=== PATIENT | female | born 1955 | race Caucasian/White ===

== ENCOUNTER 2023-04-14 17:54 | Emergency (ER) | payer MEDICARE, SELFPAY ==
--- NOTE | ~2023-04-14 | XR_ITS ---
EXAMINATION: XR CHEST CLINICAL INFORMATION: Chest pain, lightheadedness COMPARISON: None available. TECHNIQUE: 2 views of the chest were obtained. FINDINGS: No significant abnormality is noted involving the heart, lungs, mediastinum, bony thorax or soft tissues. XR/XR chest 2V IMPRESSION: Unremarkable examination.
--- NOTE | 2023-04-14 18:40 | ED.GENADULT ---
HPI - General Adult General Chief complaint: Recheck/Abnormal Lab/Rx Stated complaint: Dr sent for HBP Time Seen by Provider: 04/14/23 22:32 Source: patient, family (), RN notes reviewed and old records reviewed Mode of arrival: ambulatory Limitations: no limitations History of Present Illness HPI narrative: 67-year-old female past medical history significant for diabetes presents for evaluation of palpitations and high blood pressure Patient does not carry a diagnosis of high blood pressure and therefore does not take any medication for it She reports that over the weekend, Wednesday she was in the yard gardening and painting a fence She was also doing the laundry. She feels that she may have ?overdone it. ? She reports not feeling well for last 3 days with vague weakness and some heart palpitations She reports some tightness in her chest but denies chest pain Denies any history of coronary artery disease. She states that he she has not had an echo or stress test in about 20 years Currently she denies any pain at all She called her doctor yesterday to make an appointment and was told to take her blood pressure She states that was as high as 175/97 so her primary doctor's office referred her to the ER Related Data Allergies Allergy/AdvReac Type Severity Reaction Status Date / Time Penicillins Allergy Unknown throat Verified 04/14/23 18:47 swelling Review of Systems Constitutional: Constitutional: Denies headache(s) and Reports weakness Eyes: Eyes: Denies blurry vision ENT: Denies headache(s) Cardiovascular: Cardiovascular: Denies chest pain, Reports rapid heart rate, Reports palpitations and Denies dyspnea Respiratory: Respiratory: Denies cough and Denies dyspnea Gastrointestinal: Gastrointestinal: Denies abdominal pain Neurologic: Denies headache(s) and Reports weakness Endocrine: Endocrine: Reports palpitations PMFSH Social History Social History Smoked in Last 30 Days: No Use of substances other than those prescribed or required for medical reasons: Yes Substance Use Type: Marijuana Substance Use Frequency: Daily Advance Directives: No Advance Directives Information Provided: No Physical Exam ED Vital Signs: Vital Signs - 24 hr 04/14/23 18:41 04/14/23 22:37 Temperature 98.7 F Pulse Rate 83 80 Respiratory Rate 20 14 Blood Pressure 175/97 H 151/83 H Pulse Oximetry 96 97 Oxygen Delivery Method Room Air Room Air BMI result Body Mass Index 26.3 Const General: healthy appearing, comfortable, no acute distress, alert and awake Nutritional Appearance: well nourished Orientation/consciousness: patient oriented x3 HENMT Head: Yes normocephalic and Yes atraumatic Eyes Eyelids: Yes eyelids normal Conjunctivae: conjunctivae normal Sclerae: sclerae normal Corneas: corneas normal Pupils: Equal, round and reactive pupils present EOM: EOMs intact bilaterally Neck Neck: Yes full ROM Resp Effort & Inspection: normal respiratory effort, able to speak in complete sentences, no audible wheezes and not labored Auscultation: clear to auscultation bilaterally Cardio Rate: regular rate Rhythm: regular rhythm Skin General skin exam: no rashes or lesions noted and elasticity normal Neuro General: patient oriented x3 Cranial nerves: Yes Equal, round and reactive pupils present and Yes Bilaterally intact EOM present Cognition (Neuro): normal cognition Extrem Other: Moving all extremities well without any obvious deformities Course Course Course Narrative: This is an RME: Additional HPI, ROS, PE not included below will be deferred to primary provider. This is a 31-gyfo-wud-female presenting to the emergency department with complaints of high blood pressure reading since today. Pt states that she was working outside over the weekend in her garden and has felt nauseous, body cramping and headaches. She had an appointment with her PCP yesterday, who advised her to take her BP. She took it twice today and noticed that it was elevated. She admits to having cramping throughout her chest wall into her back and into her legs. BP readings 151/83; 171/101 today. BP 175/97 Plan: Labs, EKG, chest x-ray ordered Medical Decision Making Medical Decision Making MDM Narrative: 67-year-old female with a past medical history significant for diabetes presents for evaluation of palpitations and high blood pressure. Currently she is asymptomatic. Her physical exam is benign. On arrival to the ER her blood pressure was 175/97, but improved to 151/83 without any intervention. Her labs were significant for mild dehydration, her troponin was undetectable. Electrolytes are within normal limits with the exception of a mildly low magnesium. Chest x-ray is clear, EKG was a sinus rhythm without acute ischemia. Patient is ruled out for ACS. I discussed all these findings with the patient. She will follow-up with her doctor, who is going to call her back tomorrow. Will refer the patient to Cardiology as she may benefit from outpatient echocardiogram Differential Diagnosis Hypertension Chest pain ACS CHF Lab Data [facility] Lab Attestation statement: I reviewed the patient's lab results. 04/14/23 19:02 04/14/23 19:02 Labs: Lab Results 04/14/23 04/14/23 04/14/23 Range/Units 19:02 19:02 19:02 WBC 8.0 (4.8-10.8) X10*3/uL RBC 5.42 (4.20-5.50) X10*6/uL Hgb 15.7 (12.0-16.0) g/dl Hct 48.4 H (37.0-47.0) % MCV 89.3 (80.0-98.0) fL MCH 29.0 (27.0-33.0) pg MCHC 32.4 (31.0-35.0) g/dl RDW 11.9 (11.0-16.0) % Plt Count 381 (160-400) X10*3/uL MPV 8.9 L (9.4-12.3) fL Immature Gran % (Auto) 0.2 (0.0-0.4) % Neut % (Auto) 41.5 L (45-73) % Lymph % (Auto) 46.8 H (20-40) % [place] % (Auto) 7.5 (2-11) % Eos % (Auto) 3.5 (0-4) % Baso % (Auto) 0.5 (0-2) % Lymph # (Auto) 3.8 (1.2-4.9) X10*3/uL [place] # (Auto) 0.6 (0.1-1.2) X10*3/uL Eos # (Auto) 0.3 (0.0-0.4) X10*3/uL Baso # (Auto) 0.0 (0.0-0.2) X10*3/uL Abs Immat Gran (auto) 0.02 (0.00-0.03) X10*3/uL Absolute Neuts (auto) 3.3 (2.0-8.3) x10*3/uL Absolute Nucleated RBC 0.000 (0.0-0.012) X10*3/uL Nucleated RBC % (auto) 0.0 (0.0-0.2) /100WBC Sodium 139 (135-145) mmol/L Potassium 4.7 (3.3-5.1) mmol/L Chloride 103 (96-108) mmol/L Carbon Dioxide 19 L (22-29) mmol/L Anion Gap 22 H (12-20) BUN 15 (9-16) mg/dL Creatinine 0.82 (0.5-1.4) mg/dL Estim Creat Clear Calc 59.0 Estimated GFR > 60 Random Glucose 152 H (60-115) mg/dL Calcium 10.5 H (8.4-10.2) mg/dL Magnesium 1.5 L (1.6-2.6) mg/dL Total Bilirubin 0.5 (0.0-1.0) mg/dL Direct Bilirubin 0.1 (0.0-0.5) mg/dL AST 53 H (5-31) U/L ALT 56 H (0-31) U/L Alkaline Phosphatase 99 (39-117) U/L Troponin I High Sens < 2.7 (<3.5-17.0) ng/L Total Protein 8.9 H (6.5-8.0) g/dL Albumin 5.2 H (3.5-5.0) g/dL Lipase 101 H (8-78) U/L Independent Interpretation I performed an independent interpretation of an: EKG (Sinus rhythm rate of 78 beats per minute. No ectopy or arrhythmia) and Plain X-Ray (No infiltrates) Discharge Plan Discharge Clinical Impression: High blood pressure Patient Disposition: Home, Self-Care Instructions: Hypertension (ED) Additional Instructions: Your blood pressure was slightly elevated today. Check your blood pressure once daily and keep a log of it to bring to your primary doctor Your blood work was reassuring but did show that you are may be slightly dehydrated today Increase fluid intake over the next 2 days You have a referral to Cardiology, Dr Toro. You probably need a new stress test and or echocardiogram on outpatient basis
[2023-04-14 18:41] VITALS: BP 175/97; PULSE 83; RESP 20; TEMP 37.1; O2SAT 96; BMI 26.3
--- NOTE | 2023-04-14 18:48 | ECG_ITS ---
Test Reason : CHEST TIGHTNESS Blood Pressure : / mmHG Vent. Rate : 078 BPM Atrial Rate : 078 BPM P-R Int : 134 ms QRS Dur : 072 ms QT Int : 354 ms P-R-T Axes : 049 002 022 degrees QTc Int : 403 ms Normal sinus rhythm Nonspecific ST abnormality Abnormal ECG No previous ECGs available Referred By: Clare Hansen Electronically Signed By:STEVEN JENNINGS MD
[2023-04-14 19:15] LABS: MANUAL DIFF FLAG NO
[2023-04-14 19:17] LABS: Basophils Percent Auto 0.5 % (0-2); Eosinophils Absolute Auto 0.3 X10*3/uL (0.0-0.4); Eosinophils Percent Auto 3.5 % (0-4); Hematocrit 48.4 % (37.0-47.0); Hemoglobin 15.7 g/dl (12.0-16.0); Imm Gran Abs Auto 0.02 X10*3/uL (0.00-0.03); Imm Gran Pct Auto 0.2 % (0.0-0.4); Lymphocytes Absolute Auto 3.8 X10*3/uL (1.2-4.9); Lymphocytes Percent Auto 46.8 % (20-40); Mean Corpuscular HGB Conc 32.4 g/dl (31.0-35.0); Mean Corpuscular Volume 89.3 fL (80.0-98.0); Mean Platelet Volume 8.9 fL (9.4-12.3); Monocytes Absolute Auto 0.6 X10*3/uL (0.1-1.2); Monocytes Percent Auto 7.5 % (2-11); Neutrophils Absolute Auto 3.3 x10*3/uL (2.0-8.3); Neutrophils Percent Auto 41.5 % (45-73); Platelet Count 381 X10*3/uL (160-400); Red Blood Count 5.42 X10*6/uL (4.20-5.50); Red Cell Distribution Width 11.9 % (11.0-16.0)
[2023-04-14 19:35] LABS: Alanine Aminotransferase 56 U/L (0-31); Albumin Level 5.2 g/dL (3.5-5.0); Alkaline Phosphatase 99 U/L (39-117); Anion Gap 22 (12-20); Aspartate Amino Transferase 53 U/L (5-31); Bilirubin Direct 0.1 mg/dL (0.0-0.5); Bilirubin Total 0.5 mg/dL (0.0-1.0); Blood Urea Nitrogen 15 mg/dL (9-16); Calcium 10.5 mg/dL (8.4-10.2); Carbon Dioxide 19 mmol/L (22-29); Chloride 103 mmol/L (96-108); Estimated Glomerular Filt Rate > 60; Glucose Random 152 mg/dL (60-115); Lipase 101 U/L (8-78); Magnesium 1.5 mg/dL (1.6-2.6); Potassium 4.7 mmol/L (3.3-5.1); Sodium 139 mmol/L (135-145); Total Protein 8.9 g/dL (6.5-8.0)
[2023-04-14 19:42] LABS: Troponin-I High Sensitivity < 2.7 ng/L (<3.5-17.0)
[2023-04-14 22:37] VITALS: BP 151/83; PULSE 80; RESP 14; O2SAT 97
== END 2023-04-14 23:42 | disposition home or self-care (01) ==
PROVIDERS: Physician Assistant Medical; Emergency Provider Student in an Organized Health Care Education/Training Program; PCP Internal Medicine
DX: R03.0 Elevated blood-pressure reading, without diagnosis of hypertension (principal); F12.90 Cannabis use, unspecified, uncomplicated; E11.9 Type 2 diabetes mellitus without complications
CPT/HCPCS: 36415; 71046; 80048; 80076; 83690; 83735; 84484; 85025; 93005; 99283; 99284